=== PATIENT | female | born 1960 | race Hispanic/Latino ===

== ENCOUNTER → 2020-03-29 | Outpatient (CLI) | payer MEDICARE ==
[~2020-03-29] MED LIST: SODIUM CHLORIDE 0.9% 1000ML 0 ML IV ONE
== END | disposition home or self-care (01) ==
LOC: EDSTATUS 07:15 → DAH 15:29
PROVIDERS: ATTEND Internal Medicine Gastroenterology
DX: U07.1 COVID-19 (principal); Z12.11 Encounter for screening for malignant neoplasm of colon; D64.9 Anemia, unspecified; R12 Heartburn
CPT/HCPCS: C9803; U0003; J7030

== ENCOUNTER 2020-04-05 05:54 | Day surgery (SDC) | payer MEDICARE ==
[2020-04-05] VITALS (8 sets, daily range): BP systolic 148–178; BP diastolic 54–69
[~2020-04-05] VITALS: Ht 134.6 cm; Wt 69.9 kg
[2020-04-05] MEDS ORDERED: SODIUM CHLORIDE 0.9% 1000ML 1,000 ML IV ONE (06:26)
[2020-04-05 06:56] LABS: CREATININE 7.1 mg/dL (0.5-1.5); POTASSIUM 4.7 mmol/L (3.5-5.1)
[2020-04-05] MEDS ORDERED: FOLI1TAB85 PO (07:04)
[2020-04-05] MEDS ORDERED: CALC600T15 PO (07:04)
[2020-04-05] MEDS ORDERED: OMEP20CA12 PO (07:04)
[2020-04-05] MEDS ORDERED: AEC81 PO (07:04)
[2020-04-05] MEDS ORDERED: LIDOCAINE HCL 2% 20ML ONE (07:51)
[2020-04-05] MEDS ORDERED: MIDAZOLAM HCL 1 MG/ML 2ML VIAL ONE (07:51)
[2020-04-05] MEDS ORDERED: PROPOFOL 10 MG/ML 20ML VIAL IV ONE ×2 (07:51→08:20)
== END 2020-04-05 09:15 | disposition home or self-care (01) ==
LOC: DAH 05:54 → ENDO 05:54
PROVIDERS: ATTEND Internal Medicine Gastroenterology
DX: D50.9 Iron deficiency anemia, unspecified (principal); K63.5 Polyp of colon; K29.70 Gastritis, unspecified, without bleeding; K21.9 Gastro-esophageal reflux disease without esophagitis; E11.22 Type 2 diabetes mellitus with diabetic chronic kidney disease; I12.0 Hypertensive chronic kidney disease with stage 5 chronic kidney disease or end stage renal disease; N18.6 End stage renal disease; E78.5 Hyperlipidemia, unspecified; Z79.4 Long term (current) use of insulin; Z99.2 Dependence on renal dialysis; Z98.890 Other specified postprocedural states; Z79.899 Other long term (current) drug therapy; Z79.82 Long term (current) use of aspirin; Z90.710 Acquired absence of both cervix and uterus
CPT/HCPCS: 36415; 43239; 45380; 80048; 82948 ×2; 93005; A4215; A4221; A4222; A4223; A4606; A4620; A4663; J2250; J2704 ×2; J3490; J7030

== ENCOUNTER 2023-12-22 18:42 | Inpatient (IN) | payer OTHER ==
[~2023-12-22] VITALS: Ht 152.4 cm; Wt 62.4 kg
[~2023-12-22 18:42] MED LIST changes: +AEC81 PO; +CALC-1125 PO; +FOLI1TAB85 PO; +OMEP20CA12 PO; -SODIUM CHLORIDE 0.9% 1000ML 0 ML IV ONE
[2023-12-22 18:55] LABS: ABG HCO3 28.1 mmol/L (21.0-28.0); ABG OXYGEN SATURATION 83.4 % (94.0-98.0); ABG PCO2 45 mmHg (32-45); CARBON MONOXIDE 1.1 % (0.5-1.5); DEVICE COMMENT ROOM AIR; HHb 16.4; PO2, ARTERIAL BG 48.5 mmHg (83.0-108.0); VENT MODE, BG RR RN (ROOM AIR)
[2023-12-22 19:14] LABS: BASOPHILS # (AUTO) 0.08 K/uL (0.00-0.20); BASOPHILS % (AUTO) 0.9 % (0.0-5.0); EOSINOPHILS # (AUTO) 0.45 K/uL (0.00-0.70); EOSINOPHILS % (AUTO) 5.1 % (0.0-8.0); HEMATOCRIT 35.8 % (36-48); IMMATURE GRANULOCYTE ABSOLUTE 0.06 K/uL (0-1); LYMPHOCYTES # (AUTO) 1.6 K/uL (1.0-4.8); LYMPHOCYTES % (AUTO) 18.4 % (21.0-51.0); MEAN CORPUSCULAR HEMOGLOBIN 30.9 pg (27.0-33.0); MEAN CORPUSCULAR VOLUME 93.7 fL (79-99); MONOCYTES # (AUTO) 0.6 K/uL (0.1-1.0); MONOCYTES % (AUTO) 6.4 % (3.0-13.0); NEUTROPHILS # (AUTO) 6.1 K/uL (1.8-7.7); NEUTROPHILS % (AUTO) 68.5 % (40.0-77.0); PLATELET COUNT (AUTO) 258 K/uL (130-400); RED BLOOD CELL COUNT(AUTO) 3.82 MIL/uL (4.00-5.50); WHITE BLOOD COUNT (AUTO) 8.9 K/uL (4.8-10.8)
[2023-12-22 19:24] LABS: SARS-CoV-2, RNA, NAAT NEGATIVE SARS CoV-2 (NEGATIVE)
[2023-12-22 19:29] LABS: INFLUENZA TYPE A Negative For Type A (NEGATIVE); INFLUENZA TYPE B Negative For Type B (NEGATIVE)
[2023-12-22] MEDS ORDERED: HYDR50TA37 PO (19:30)
[2023-12-22] MEDS ORDERED: ROSU10TA72 PO (19:30)
[2023-12-22] MEDS ORDERED: BACL5TAB PO (19:30)
[2023-12-22] MEDS ORDERED: CARV25TA PO (19:30)
[2023-12-22] MEDS ORDERED: NIFE-40 PO (19:30)
[2023-12-22 19:35] LABS: BILIRUBIN,TOTAL 0.5 mg/dL (0.2-1.0); POTASSIUM 4.9 mmol/L (3.5-5.1); TOTAL PROTEIN, SERUM 8.4 g/dL (6.0-8.3)
[2023-12-22 19:44] LABS: CREATININE 10.2 mg/dL (0.5-1.0)
[2023-12-22] MEDS: hydrALAZine 20MG/ML VIAL IV ONE (19:52)
[2023-12-22] MEDS: ENALAPRILAT DIHYDRATE 1.25MG/ML 1ML VIAL IV SCH (20:15)
[2023-12-22] MEDS ORDERED: ondanSETRON 4MG INJ IVP PRN (21:00)
[2023-12-22] MEDS: niCARDIpine 25MG INJ 25 MG in 0.9% NACL 250ML 240 ML IV SCH (21:54)
[2023-12-22 22:40] VITALS: BP 177/57; PULSE 66; RESP 16; TEMP 98.4
[2023-12-22 23:00] VITALS: BP 177/51; PULSE 66; RESP 16; TEMP 98.4
[2023-12-22 23:10] VITALS: BP 166/53; PULSE 66; RESP 16
[2023-12-22 23:30] VITALS: BP 155/51; PULSE 66; RESP 16
[2023-12-22 23:45] VITALS: BP 166/58; PULSE 66; RESP 16
[2023-12-23] VITALS (114 sets, daily range): BP systolic 132–189; BP diastolic 35–86; PULSE 60–82; RESP 10–81; TEMP 97.9–99.6; O2SAT 94–99
[2023-12-23] MEDS: acetaMINOPHEN 325 MG TAB PO PRN (01:44)
[2023-12-23] MEDS: IpraTROPium/alBUTERol SULFATE 3 ML SOLUTION IH PRN (01:58)
[2023-12-23] MEDS: niCARDIpine 25MG INJ IV ONE ×2 (03:12→07:18)
[2023-12-23 04:54] LABS: BASOPHILS # (AUTO) 0.07 K/uL (0.00-0.20); BASOPHILS % (AUTO) 0.7 % (0.0-5.0); EOSINOPHILS # (AUTO) 0.09 K/uL (0.00-0.70); EOSINOPHILS % (AUTO) 0.9 % (0.0-8.0); HEMATOCRIT 33.1 % (36-48); IMMATURE GRANULOCYTE ABSOLUTE 0.07 K/uL (0-1); LYMPHOCYTES # (AUTO) 1.6 K/uL (1.0-4.8); LYMPHOCYTES % (AUTO) 15.8 % (21.0-51.0); MEAN CORPUSCULAR HEMOGLOBIN 31.1 pg (27.0-33.0); MEAN CORPUSCULAR HGB CONC 32.9 g/dL (32.0-36.0); MEAN CORPUSCULAR VOLUME 94.6 fL (79-99); MONOCYTES # (AUTO) 0.6 K/uL (0.1-1.0); MONOCYTES % (AUTO) 5.7 % (3.0-13.0); NEUTROPHILS # (AUTO) 7.7 K/uL (1.8-7.7); NEUTROPHILS % (AUTO) 76.2 % (40.0-77.0); PLATELET COUNT (AUTO) 230 K/uL (130-400); RED CELL DISTRIBUTION WIDTH 16.1 % (11.0-15.5); WHITE BLOOD COUNT (AUTO) 10.1 K/uL (4.8-10.8)
[2023-12-23 04:59] LABS: CREATININE 6.2 mg/dL (0.5-1.0); MAGNESIUM 2.3 mg/dL (1.80-2.40); POTASSIUM 4.2 mmol/L (3.5-5.1)
[2023-12-23] MEDS: IpraTROPium/alBUTERol SULFATE 3 ML SOLUTION IH SCH (09:45)
[2023-12-23] MEDS: HEParin 5,000 UNIT VIAL SQ SCH (10:24)
[2023-12-23] MEDS: CEFTRIAXONE 2GM VIAL IVPB SCH (10:29)
[2023-12-23] MEDS: predniSONE 20 MG TABLET PO SCH (10:29)
[2023-12-23] MEDS: AZITHROMYCIN 250 MG TABLET PO SCH (10:29)
[2023-12-23] MEDS: 0.9%NACL 1000ML 1,000 ML IV SCH (11:22)
[2023-12-23] MEDS: hydrALAZine 25MG TABLET PO SCH (13:44)
[2023-12-23 14:38] LABS: HEPATITIS B CORE AB TOTAL Non-Reactive (Nonreactive); HEPATITIS B SURFACE ANTIBODY Positive (Reactive); HEPATITIS B SURFACE ANTIGEN Non-Reactive (Nonreactive); HEPATITIS C ANTIBODY Non-Reactive (Nonreactive)
[2023-12-23] MEDS: carVEDIlol 25 MG TABLET PO SCH (20:01)
[2023-12-23] MEDS: monteLUKAST sodIUM 10 MG TAB PO SCH (20:01)
[2023-12-23] MEDS: nifeDIPine ER 30 MG TAB PO SCH (20:01)
[2023-12-24] VITALS (97 sets, daily range): BP systolic 150–179; BP diastolic 45–73; PULSE 67–86; RESP 7–39; TEMP 97.4–99.1; O2SAT 92–97
[2023-12-24 04:24] LABS: BASOPHILS # (AUTO) 0.03 K/uL (0.00-0.20); BASOPHILS % (AUTO) 0.4 % (0.0-5.0); EOSINOPHILS # (AUTO) 0.01 K/uL (0.00-0.70); EOSINOPHILS % (AUTO) 0.1 % (0.0-8.0); HEMATOCRIT 32.9 % (36-48); IMMATURE GRANULOCYTE ABSOLUTE 0.02 K/uL (0-1); LYMPHOCYTES # (AUTO) 1.3 K/uL (1.0-4.8); LYMPHOCYTES % (AUTO) 16.5 % (21.0-51.0); MEAN CORPUSCULAR HEMOGLOBIN 30.9 pg (27.0-33.0); MEAN CORPUSCULAR HGB CONC 31.9 g/dL (32.0-36.0); MEAN CORPUSCULAR VOLUME 96.8 fL (79-99); MONOCYTES # (AUTO) 0.4 K/uL (0.1-1.0); MONOCYTES % (AUTO) 4.7 % (3.0-13.0); NEUTROPHILS # (AUTO) 6.2 K/uL (1.8-7.7); PLATELET COUNT (AUTO) 219 K/uL (130-400); RED CELL DISTRIBUTION WIDTH 15.9 % (11.0-15.5); WHITE BLOOD COUNT (AUTO) 7.9 K/uL (4.8-10.8)
[2023-12-24 04:37] LABS: ALBUMIN 3.4 g/dL (3.5-5.0); BILIRUBIN,TOTAL 0.3 mg/dL (0.2-1.0); CREATININE 5.5 mg/dL (0.5-1.0); MAGNESIUM 2.1 mg/dL (1.80-2.40); POTASSIUM 4.8 mmol/L (3.5-5.1); TOTAL PROTEIN, SERUM 7.2 g/dL (6.0-8.3)
[2023-12-24] MEDS: ASPIRIN 81 MG EC TAB PO SCH (08:49)
[2023-12-24] MEDS: PANTOPrazole 40 MG TAB DR PO SCH (08:49)
[2023-12-24] MEDS: AMOX/CLAV 500/125MG TAB PO SCH (10:00)
[2023-12-24] MEDS: AZITHROMYCIN 250 MG TABLET PO SCH (11:48)
[2023-12-24] MEDS: atorVAStatin 20 MG TABLET PO SCH (20:09)
[2023-12-24] MEDS: cloNIDine HCL 0.1 MG TABLET PO PRN (21:47)
[2023-12-25] VITALS (48 sets, daily range): BP systolic 153–186; BP diastolic 50–67; PULSE 64–76; RESP 9–24; TEMP 97.7–98.7; O2SAT 95–97
[2023-12-25 04:39] LABS: BASOPHILS # (AUTO) 0.09 K/uL (0.00-0.20); EOSINOPHILS # (AUTO) 0.46 K/uL (0.00-0.70); EOSINOPHILS % (AUTO) 5.3 % (0.0-8.0); HEMATOCRIT 31.2 % (36-48); IMMATURE GRANULOCYTE ABSOLUTE 0.02 K/uL (0-1); LYMPHOCYTES # (AUTO) 2.5 K/uL (1.0-4.8); LYMPHOCYTES % (AUTO) 28.7 % (21.0-51.0); MEAN CORPUSCULAR HEMOGLOBIN 30.7 pg (27.0-33.0); MEAN CORPUSCULAR HGB CONC 32.1 g/dL (32.0-36.0); MEAN CORPUSCULAR VOLUME 95.7 fL (79-99); MONOCYTES # (AUTO) 0.7 K/uL (0.1-1.0); MONOCYTES % (AUTO) 8.1 % (3.0-13.0); NEUTROPHILS # (AUTO) 4.9 K/uL (1.8-7.7); NEUTROPHILS % (AUTO) 56.7 % (40.0-77.0); PLATELET COUNT (AUTO) 194 K/uL (130-400); RED BLOOD CELL COUNT(AUTO) 3.26 MIL/uL (4.00-5.50); WHITE BLOOD COUNT (AUTO) 8.7 K/uL (4.8-10.8)
[2023-12-25 04:50] LABS: ALBUMIN 3.3 g/dL (3.5-5.0); BILIRUBIN,TOTAL 0.3 mg/dL (0.2-1.0); POTASSIUM 5.3 mmol/L (3.5-5.1); TOTAL PROTEIN, SERUM 6.8 g/dL (6.0-8.3)
[2023-12-25] MEDS: Vitamin B Complex/Vit C/Folic Acid PO SCH (08:25)
[2023-12-25] MEDS: polyETHYLene GLYCol 3350 17 GM POWD.PACK PO ONE (17:19)
[2023-12-26] VITALS (10 sets, daily range): BP systolic 165–191; BP diastolic 59–68; PULSE 69–76; RESP 16–18; TEMP 98.2–98.7; O2SAT 97–98
[2023-12-26 05:42] LABS: BASOPHILS % (AUTO) 1.4 % (0.0-5.0); EOSINOPHILS # (AUTO) 0.49 K/uL (0.00-0.70); EOSINOPHILS % (AUTO) 6.7 % (0.0-8.0); HEMATOCRIT 33.7 % (36-48); IMMATURE GRANULOCYTE ABSOLUTE 0.02 K/uL (0-1); LYMPHOCYTES # (AUTO) 2.2 K/uL (1.0-4.8); LYMPHOCYTES % (AUTO) 29.9 % (21.0-51.0); MEAN CORPUSCULAR HEMOGLOBIN 30.9 pg (27.0-33.0); MEAN CORPUSCULAR HGB CONC 32.3 g/dL (32.0-36.0); MEAN CORPUSCULAR VOLUME 95.5 fL (79-99); MONOCYTES # (AUTO) 0.7 K/uL (0.1-1.0); MONOCYTES % (AUTO) 8.9 % (3.0-13.0); NEUTROPHILS # (AUTO) 3.9 K/uL (1.8-7.7); NEUTROPHILS % (AUTO) 52.8 % (40.0-77.0); PLATELET COUNT (AUTO) 213 K/uL (130-400); RED BLOOD CELL COUNT(AUTO) 3.53 MIL/uL (4.00-5.50); RED CELL DISTRIBUTION WIDTH 15.4 % (11.0-15.5); WHITE BLOOD COUNT (AUTO) 7.3 K/uL (4.8-10.8)
[2023-12-26 06:23] LABS: ALBUMIN 3.5 g/dL (3.5-5.0); BILIRUBIN,TOTAL 0.4 mg/dL (0.2-1.0); CREATININE 6.4 mg/dL (0.5-1.0); POTASSIUM 4.5 mmol/L (3.5-5.1); TOTAL PROTEIN, SERUM 7.3 g/dL (6.0-8.3)
[2023-12-26] MEDS: polyETHYLene GLYCol 3350 17 GM POWD.PACK PO SCH (08:11)
[2023-12-26] MEDS ORDERED: IpraTROPium/alBUTERol SULFATE 3 ML SOLUTION IH PRN (09:30)
[2023-12-26] MEDS: cloNIDine HCL 0.2 MG TABLET PO STA (10:32)
== END 2023-12-26 12:15 | disposition home or self-care (01) | DRG 280 ==
LOC: EDH 18:42 → EDHIP 20:59 → 2CH 12-23 02:20 → 2BH 12-23 18:24 → 3BH 12-25 12:59
PROVIDERS: ADMIT Internal Medicine Infectious Disease; ATTEND Internal Medicine Infectious Disease
PROC: 5A1D70Z Performance of Urinary Filtration, Intermittent, Less than 6 Hours Per Day (ICD-10-PCS; principal; 2023-12-23)
PROC: 5A1D70Z Performance of Urinary Filtration, Intermittent, Less than 6 Hours Per Day (ICD-10-PCS; 2023-12-25)
DX: I16.1 Hypertensive emergency (principal); J18.9 Pneumonia, unspecified organism; I21.A1 Myocardial infarction type 2; J96.01 Acute respiratory failure with hypoxia; N18.6 End stage renal disease; J81.0 Acute pulmonary edema; J44.1 Chronic obstructive pulmonary disease with (acute) exacerbation; J45.901 Unspecified asthma with (acute) exacerbation; J44.0 Chronic obstructive pulmonary disease with (acute) lower respiratory infection; J90 Pleural effusion, not elsewhere classified; E87.1 Hypo-osmolality and hyponatremia; I12.0 Hypertensive chronic kidney disease with stage 5 chronic kidney disease or end stage renal disease; E87.5 Hyperkalemia; E11.22 Type 2 diabetes mellitus with diabetic chronic kidney disease; E87.70 Fluid overload, unspecified; E78.5 Hyperlipidemia, unspecified; E11.65 Type 2 diabetes mellitus with hyperglycemia; D63.1 Anemia in chronic kidney disease; K21.9 Gastro-esophageal reflux disease without esophagitis; I25.10 Atherosclerotic heart disease of native coronary artery without angina pectoris; Z83.3 Family history of diabetes mellitus; Z86.0100 Personal history of colon polyps, unspecified; Z99.2 Dependence on renal dialysis; Z87.891 Personal history of nicotine dependence; Z90.710 Acquired absence of both cervix and uterus
CPT/HCPCS: 36415; 36600; 71045; 80048; 80053; 82435; 82803; 82947; 82948; 83605; 83735; 83880; 84132; 84295; 84484; 85018; 85025; 86704; 86706; 86803; 87340; 87635; 87641; 87804; 90935; 93005; 94010; 94640; 94664; 99291; G0378; J0360; J0696; J1644; J3490; J7050